=== PATIENT | female | born 1995 | race Caucasian/White ===

== ENCOUNTER 2018-11-22 17:29 | Outpatient (CLI) | payer MEDICAID ==
[2018-11-22 18:43] LABS: RUPTURE FETAL MEMBRANES NEGATIVE (NEGATIVE)
== END 2018-11-22 20:34 | disposition home or self-care (01) ==
LOC: OBT 17:29 → L-D 17:30 → OBT 20:34
DX: O41.92X0 Disorder of amniotic fluid and membranes, unspecified, second trimester, not applicable or unspecified (principal); Z3A.26 26 weeks gestation of pregnancy
CPT/HCPCS: 76815; 76817; 84112

== ENCOUNTER 2019-01-15 15:39 | Outpatient (CLI) | payer OTHER, MEDICAID ==
[2019-01-15 17:28] LABS: ADD MAN DIFF? NO; ADD UMIC NO; BASOPHILS % 0.4 % (0.0-2.0); EOSINOPHILS # 0.3 10^3/ul (0.0-0.5); EOSINOPHILS % 3.9 % (0.0-7.0); HEMATOCRIT 29.3 % (37.0-47.0); HEMOGLOBIN 9.7 g/dl (12.0-16.0); LYMPHOCYTES % 24.8 % (15.0-51.0); MEAN CORPUSCULAR HEMOGLOBIN 28.2 pg (29.0-33.0); MEAN CORPUSCULAR HGB CONC 33.1 g/dl (32.0-37.0); MEAN CORPUSCULAR VOLUME 85.2 fl (82.0-101.0); MEAN PLATELET VOLUME 9.3 fl (7.4-10.4); MONOCYTE # 0.9 10^3/ul (0.3-0.9); MONOCYTES % 10.6 % (0.0-11.0); NEUTROPHIL # 4.9 10^3/ul (1.6-7.5); NEUTROPHILS % 59.6 % (39.0-77.0); PLATELET COUNT 272 10^3/UL (140-415); RED BLOOD COUNT 3.44 10^6/ul (4.20-5.40); RED CELL DISTRIBUTION WIDTH 14.3 % (11.5-14.5); UR ASCORBIC ACID NEGATIVE (NEGATIVE); UR BILIRUBIN (Dip) NEGATIVE (NEGATIVE); UR BLOOD (Dip) NEGATIVE (NEGATIVE); UR CLARITY CLEAR (CLEAR); UR COLOR YELLOW (YELLOW); UR GLUCOSE (Dip) NEGATIVE (NEGATIVE); UR KETONES (Dip) NEGATIVE (NEGATIVE); UR LEUKOCYTE ESTERASE (Dip) NEGATIVE Leu/ul (NEGATIVE); UR NITRITE (Dip) NEGATIVE (NEGATIVE); UR SPECIFIC GRAVITY (Dip) 1.015 (1.003-1.030); UR TOTAL PROTEIN (Dip) NEGATIVE (NEGATIVE); UR UROBILINOGEN (Dip) NEGATIVE (NEGATIVE)
[2019-01-15 17:28] LABS: WHITE BLOOD COUNT 8.2 10^3/ul (4.8-10.8)
[2019-01-15 17:50] LABS: ALANINE AMINOTRANSFERASE 15 IU/L (13-69); ALBUMIN 3.6 g/dl (3.3-4.9); ALBUMIN/GLOBULIN RATIO 1.12; ALKALINE PHOSPHATASE 128 IU/L (42-121); ANION GAP 7 (5-13); ASPARTATE AMINO TRANSFERASE 14 IU/L (15-46); BILIRUBIN,INDIRECT 0.3 mg/dl (0-1.1); BILIRUBIN,TOTAL 0.3 mg/dl (0.2-1.3); BLOOD UREA NITROGEN 10 mg/dl (7-20); CALCIUM 9.1 mg/dl (8.4-10.2); CARBON DIOXIDE 21 mmol/L (21-31); CHLORIDE 108 mmol/L (97-110); CREATININE 0.48 mg/dl (0.44-1.00); Estimated GFR > 60 mL/min (>60); GLUCOSE 85 mg/dl (70-220); POTASSIUM 3.9 mmol/L (3.5-5.1); SODIUM 136 mmol/L (135-144); TOTAL PROTEIN 6.8 g/dl (6.1-8.1); URIC ACID 4.3 mg/dl (3.1-7.9)
[2019-01-15 17:57] LABS: INR 0.89; PROTIME 12.2 Sec (11.9-14.9)
[2019-01-15 17:58] LABS: PARTIAL THROMBOPLASTIN TIME 25.5 Sec (23.0-35.0)
[2019-01-15 19:11] LABS: FIBRIN SPLIT PRODUCT >10 and <40 ug/ml (<10)
== END 2019-01-15 19:11 | disposition home or self-care (01) ==
LOC: OBT 15:39 → L-D 15:40 → OBT 19:11
DX: O26.893 Other specified pregnancy related conditions, third trimester (principal); R42 Dizziness and giddiness; R03.0 Elevated blood-pressure reading, without diagnosis of hypertension; Z3A.34 34 weeks gestation of pregnancy
CPT/HCPCS: 76818; 80053; 81003; 84560; 85025; 85362; 85384; 85610; 85730

== ENCOUNTER 2019-01-17 12:54 | Emergency (ER) | payer OTHER ==
[2019-01-17 14:18] LABS: ADD MAN DIFF? NO
[2019-01-17 14:21] LABS: WHITE BLOOD COUNT 6.9 10^3/ul (4.8-10.8)
[2019-01-17 14:21] LABS: BASOPHILS % 0.4 % (0.0-2.0); EOSINOPHILS # 0.3 10^3/ul (0.0-0.5); EOSINOPHILS % 3.6 % (0.0-7.0); HEMATOCRIT 29.9 % (37.0-47.0); LYMPHOCYTES # 1.5 10^3/ul (0.8-2.9); LYMPHOCYTES % 22.4 % (15.0-51.0); MEAN CORPUSCULAR HGB CONC 33.4 g/dl (32.0-37.0); MEAN CORPUSCULAR VOLUME 83.8 fl (82.0-101.0); MEAN PLATELET VOLUME 9.1 fl (7.4-10.4); MONOCYTE # 0.8 10^3/ul (0.3-0.9); MONOCYTES % 11.2 % (0.0-11.0); NEUTROPHIL # 4.2 10^3/ul (1.6-7.5); NEUTROPHILS % 61.5 % (39.0-77.0); PLATELET COUNT 258 10^3/UL (140-415); RED BLOOD COUNT 3.57 10^6/ul (4.20-5.40); RED CELL DISTRIBUTION WIDTH 14.3 % (11.5-14.5)
[2019-01-17 14:48] LABS: BLOOD UREA NITROGEN 8 mg/dl (7-20); CALCIUM 9.1 mg/dl (8.4-10.2); CARBON DIOXIDE 20 mmol/L (21-31); CREATININE 0.42 mg/dl (0.44-1.00); Estimated GFR > 60 mL/min (>60); GLUCOSE 114 mg/dl (70-220); POTASSIUM 3.9 mmol/L (3.5-5.1); SODIUM 136 mmol/L (135-144)
[2019-01-17 14:52] LABS: ETHANOL < 10.0 mg/dl (0-0)
[2019-01-17 14:58] LABS: B-TYPE NATRIURETIC PEPTIDE 13 PG/ML (0-125); TROPONIN-I < 0.012 ng/ml (0.000-0.120)
[2019-01-17 15:08] LABS: FREE T4 (FREE THYROXINE) 1.02 ng/dl (0.79-2.35)
[2019-01-17 15:21] LABS: ANION GAP 8 (5-13); CHLORIDE 108 mmol/L (97-110)
[2019-01-17 17:23] LABS: AMPHETAMINE/METHAMPHETAMINE Negative (NEGATIVE); BARBITURATES Negative (NEGATIVE); BENZODIAZEPINES Negative (NEGATIVE); CANNABINOIDS Negative (NEGATIVE); COCAINE Negative (NEGATIVE); OPIATES Negative (NEGATIVE)
== END 2019-01-17 17:45 | disposition home or self-care (01) ==
LOC: E/R 12:54
DX: O26.893 Other specified pregnancy related conditions, third trimester (principal); R00.0 Tachycardia, unspecified; R00.2 Palpitations; O99.013 Anemia complicating pregnancy, third trimester; Z3A.34 34 weeks gestation of pregnancy
CPT/HCPCS: 36415; 71045; 80048; 80307; 83880; 84439; 84443; 84484; 85025; 93970; 99285-25

== ENCOUNTER 2019-02-06 10:17 | Emergency (ER) | payer OTHER ==
[2019-02-06 12:42] LABS: ADD MAN DIFF? NO
[2019-02-06 12:47] LABS: WHITE BLOOD COUNT 9.3 10^3/ul (4.8-10.8)
[2019-02-06 12:47] LABS: BASOPHILS % 0.4 % (0.0-2.0); EOSINOPHILS # 0.4 10^3/ul (0.0-0.5); EOSINOPHILS % 4.3 % (0.0-7.0); HEMATOCRIT 32.6 % (37.0-47.0); HEMOGLOBIN 10.7 g/dl (12.0-16.0); LYMPHOCYTES # 1.4 10^3/ul (0.8-2.9); MEAN CORPUSCULAR HEMOGLOBIN 27.5 pg (29.0-33.0); MEAN CORPUSCULAR HGB CONC 32.8 g/dl (32.0-37.0); MEAN CORPUSCULAR VOLUME 83.8 fl (82.0-101.0); MEAN PLATELET VOLUME 9.4 fl (7.4-10.4); MONOCYTE # 1.2 10^3/ul (0.3-0.9); MONOCYTES % 12.6 % (0.0-11.0); NEUTROPHIL # 6.3 10^3/ul (1.6-7.5); NEUTROPHILS % 67.2 % (39.0-77.0); PLATELET COUNT 237 10^3/UL (140-415); RED BLOOD COUNT 3.89 10^6/ul (4.20-5.40); RED CELL DISTRIBUTION WIDTH 14.8 % (11.5-14.5)
[2019-02-06 13:10] LABS: ANION GAP 8 (5-13); BLOOD UREA NITROGEN 4 mg/dl (7-20); CALCIUM 9.3 mg/dl (8.4-10.2); CARBON DIOXIDE 21 mmol/L (21-31); CHLORIDE 109 mmol/L (97-110); CREATININE 0.42 mg/dl (0.44-1.00); Estimated GFR > 60 mL/min (>60); GLUCOSE 101 mg/dl (70-220); POTASSIUM 4.1 mmol/L (3.5-5.1); SODIUM 138 mmol/L (135-144)
[2019-02-06] MEDS: SOD CHLORIDE 0.9% 100 ML (13:49)
[2019-02-06] MEDS: IOHEXOL 100 ML (13:49)
== END 2019-02-06 15:35 | disposition home or self-care (01) ==
LOC: E/R 10:17
DX: O99.89 Other specified diseases and conditions complicating pregnancy, childbirth and the puerperium (principal); R00.0 Tachycardia, unspecified; R06.02 Shortness of breath; Z3A.37 37 weeks gestation of pregnancy
CPT/HCPCS: 71045; 71275; 80048; 85025; 93005; 99285-25

== ENCOUNTER 2019-03-01 10:39 | Inpatient (IN) | payer OTHER ==
[2019-03-01] MEDS ORDERED: METHYLERGONOVINE 0.2 MG INJ IM (13:30)
[2019-03-01] MEDS ORDERED: BUTORPHANOL 2 MG INJ IV ×2 (13:30)
[2019-03-01] MEDS ORDERED: MISOPROSTOL 200 MCG TAB PR (13:30)
[2019-03-01] MEDS ORDERED: OXYTOCIN 30 UNITS/LR 500 ML IV ×2 (13:30)
[2019-03-01] MEDS ORDERED: CARBOPROST 250 MCG INJ IM (13:30)
[2019-03-01 15:04] LABS: ADD MAN DIFF? NO
[2019-03-01 15:05] LABS: BASOPHILS % 0.4 % (0.0-2.0); EOSINOPHILS # 0.1 10^3/ul (0.0-0.5); EOSINOPHILS % 1.5 % (0.0-7.0); HEMATOCRIT 30.7 % (37.0-47.0); HEMOGLOBIN 10.2 g/dl (12.0-16.0); LYMPHOCYTES # 1.6 10^3/ul (0.8-2.9); LYMPHOCYTES % 19.9 % (15.0-51.0); MEAN CORPUSCULAR HEMOGLOBIN 27.4 pg (29.0-33.0); MEAN CORPUSCULAR HGB CONC 33.2 g/dl (32.0-37.0); MEAN CORPUSCULAR VOLUME 82.5 fl (82.0-101.0); MONOCYTE # 0.9 10^3/ul (0.3-0.9); MONOCYTES % 11.6 % (0.0-11.0); NEUTROPHIL # 5.3 10^3/ul (1.6-7.5); NEUTROPHILS % 66.1 % (39.0-77.0); PLATELET COUNT 256 10^3/UL (140-415); RED BLOOD COUNT 3.72 10^6/ul (4.20-5.40); RED CELL DISTRIBUTION WIDTH 14.6 % (11.5-14.5)
[2019-03-01 15:24] LABS: INR 0.89; PROTIME 12.2 Sec (11.9-14.9)
[2019-03-01 15:25] LABS: PARTIAL THROMBOPLASTIN TIME 25.1 Sec (23.0-35.0)
[2019-03-01] MEDS: MISOPROSTOL 50 MCG CAPSULE PO ×2 (18:28→23:19)
[2019-03-01] MEDS: LACTATED RINGER'S 1,000 ML IV (22:16)
[2019-03-02] MEDS: MISOPROSTOL 50 MCG CAPSULE PO ×6 (03:46→21:00)
[2019-03-02] MEDS: LACTATED RINGER'S 1,000 ML IV ×3 (06:16→22:10)
[2019-03-02 14:54] LABS: RAPID PLASMA REAGIN NONREACTIVE (NR)
[2019-03-02 22:10] LABS: AMPHETAMINE/METHAMPHETAMINE Negative (NEGATIVE); BARBITURATES Negative (NEGATIVE); BENZODIAZEPINES Negative (NEGATIVE); CANNABINOIDS Negative (NEGATIVE); COCAINE Negative (NEGATIVE); OPIATES Negative (NEGATIVE)
[2019-03-02 22:34] LABS: HEPATITIS B SURFACE ANTIGEN NEGATIVE (NEGATIVE)
[2019-03-03] MEDS: MISOPROSTOL 50 MCG CAPSULE PO (01:00)
[2019-03-03] MEDS: OXYTOCIN 30 UNITS/LR 500 ML IV ×2 (03:09→23:05)
[2019-03-03] MEDS: LACTATED RINGER'S 1,000 ML IV ×4 (07:08→21:16)
[2019-03-03] MEDS ORDERED: FENTAnyl 2MCG/ML-ROPIV 0.2% 100 ML (13:03)
[2019-03-03] MEDS: FENTAnyl 2MCG/ML-ROPIV 0.2% 100 ML BAG EPI ×2 (13:20→17:59)
[2019-03-03] MEDS ORDERED: NALOXONE (0.4 MG/ML) INJ IV (13:30)
[2019-03-03] MEDS ORDERED: ONDANSETRON 4 MG INJ IV (13:30)
[2019-03-03] MEDS: LIDOCAINE 1% (MPF) 30 ML INJ INJ (23:06)
[2019-03-03] MEDS: MINERAL OIL LIGHT 10 ML VIAL TOP (23:06)
[2019-03-04] MEDS ORDERED: OXYTOCIN 30 UNITS/LR 500 ML IV
[2019-03-04] MEDS ORDERED: MISOPROSTOL 200 MCG TAB PR
[2019-03-04] MEDS ORDERED: CARBOPROST 250 MCG INJ IM
[2019-03-04] MEDS ORDERED: METHYLERGONOVINE 0.2 MG INJ IM
[2019-03-04] MEDS: IBUPROFEN 600 MG TAB PO ×4 (00:20→17:43)
[2019-03-04] MEDS: LACTATED RINGER'S 1,000 ML IV* ×4 (01:47→23:44)
[2019-03-04] MEDS: BENZOCAINE 20% 56 ML SPRAY TOP (03:26)
[2019-03-04] MEDS: LANOLIN HPA 1 PKT TOP (03:27)
[2019-03-04] MEDS: OXYTOCIN 30 UNITS/LR 500 ML IV ×2 (03:29→09:44)
[2019-03-04] MEDS: SENNA/DOCUSATE NA (8.6MG/50MG) TAB PO ×2 (09:39→20:32)
[2019-03-04] MEDS: WITCH HAZEL/GLYCERIN PAD PR (15:45)
[2019-03-04] MEDS: CEPHALEXIN 500 MG CAP PO (18:37)
[2019-03-04] MEDS: HYDROCODONE/APAP (5/325) TAB PO (20:44)
[2019-03-05] MEDS: CEPHALEXIN 500 MG CAP PO ×3 (00:19→11:36)
[2019-03-05] MEDS: IBUPROFEN 600 MG TAB PO ×3 (00:20→11:36)
[2019-03-05 08:07] LABS: ADD MAN DIFF? NO
[2019-03-05 08:13] LABS: WHITE BLOOD COUNT 9.2 10^3/ul (4.8-10.8)
[2019-03-05 08:13] LABS: BASOPHIL # 0.1 10^3/ul (0.0-0.1); BASOPHILS % 0.7 % (0.0-2.0); EOSINOPHILS # 0.3 10^3/ul (0.0-0.5); EOSINOPHILS % 2.8 % (0.0-7.0); HEMATOCRIT 27.8 % (37.0-47.0); HEMOGLOBIN 9.1 g/dl (12.0-16.0); LYMPHOCYTES # 1.7 10^3/ul (0.8-2.9); LYMPHOCYTES % 18.8 % (15.0-51.0); MEAN CORPUSCULAR HEMOGLOBIN 26.9 pg (29.0-33.0); MEAN CORPUSCULAR HGB CONC 32.7 g/dl (32.0-37.0); MEAN CORPUSCULAR VOLUME 82.2 fl (82.0-101.0); MEAN PLATELET VOLUME 9.9 fl (7.4-10.4); MONOCYTE # 0.9 10^3/ul (0.3-0.9); MONOCYTES % 9.9 % (0.0-11.0); NEUTROPHIL # 6.2 10^3/ul (1.6-7.5); NEUTROPHILS % 67.3 % (39.0-77.0); PLATELET COUNT 220 10^3/UL (140-415); RED BLOOD COUNT 3.38 10^6/ul (4.20-5.40); RED CELL DISTRIBUTION WIDTH 14.6 % (11.5-14.5)
[2019-03-05] MEDS: DIPHTH/TET/ACEL PERTUSS (ADULT) 0.5 ML VIAL IM* (09:00)
[2019-03-05] MEDS: SENNA/DOCUSATE NA (8.6MG/50MG) TAB PO (09:00)
== END 2019-03-05 14:20 | disposition home or self-care (01) | DRG 805 ==
LOC: OBT 10:39 → PP1 03-04 01:03 → L-D 10:39 → OBT 12:40 → L-D 12:40
PROVIDERS: Obstetrics & Gynecology
PROC: 10E0XZZ Delivery of Products of Conception, External Approach (ICD-10-PCS; principal; 2019-03-03)
PROC: 0KQM0ZZ Repair Perineum Muscle, Open Approach (ICD-10-PCS; 2019-03-03)
DX: O48.0 Post-term pregnancy (principal); O99.42 Diseases of the circulatory system complicating childbirth; Z37.0 Single live birth; R00.0 Tachycardia, unspecified; O70.1 Second degree perineal laceration during delivery; Z3A.40 40 weeks gestation of pregnancy
CPT/HCPCS: 62322; 76815; 76818; 80307; 85025; 85610; 85730; 86592; 86850; 86900; 86901; 87340